=== PATIENT | female | born 1950 | race Caucasian/White ===

== ENCOUNTER 2017-10-31 07:43 | Inpatient (IN) | payer MEDICARE, BC ==
[~2017-10-31] VITALS: Ht 168.9 cm; Wt 96.8 kg
[~2017-10-31 07:43] MED LIST: AMLO5TAB2 PO; BUPIVACAINE/PF 0.5% ONE; BUPR75TA6 PO; CHOL10003 PO; CLON0.5T11 PO; DEXL60CA2 PO; EPINEPHRINE 1 MG/ML, 1ML ONE; GABA300C10 PO; LEVO88TA4 PO; LOSA100T6 PO; ONDA4TAB10 PO; OXYC-302 PO; RANI300T PO; SIMV40TA3 PO; SUCR1TAB PO; TIZA2TAB PO
[2017-10-31] MEDS ORDERED: LACTATED RINGERS 1,000 ML IV SCH (08:35)
[2017-10-31 08:38] VITALS: BP 134/88
[2017-10-31 09:25] LABS: ALANINE AMINOTRANSFERASE 41 U/L (12-78); ALBUMIN 3.8 g/dL (3.4-5.0); ANION GAP 8 mmol/L (5-15); CHLORIDE 105 mmol/L (98-107); CREATININE 1.18 mg/dL (0.55-1.02)
[2017-10-31 09:27] LABS: ALKALINE PHOSPHATASE 79 U/L (45-117); BILIRUBIN,TOTAL 0.8 mg/dL (0.2-1.0); TOTAL PROTEIN 7.9 g/dL (6.4-8.2)
[2017-10-31] MEDS ORDERED: MIDAZOLAM 1 MG/ML, 2ML ONE (09:44)
[2017-10-31] MEDS ORDERED: FENTANYL PF 250 MCG/5ML ONE (09:44)
[2017-10-31] MEDS ORDERED: GABAPENTIN 300 MG CAPSULE PO ONE (10:00)
[2017-10-31] MEDS ORDERED: ACETAMINOPHEN 500 MG TABLET PO ONE (10:00)
[2017-10-31] MEDS ORDERED: DEXMEDETOMIDINE 200 MCG/2 ML ONE (10:06)
[2017-10-31] MEDS ORDERED: SUGAMMADEX 200 MG/2 ML IVPush ONE (10:06)
[2017-10-31] MEDS ORDERED: ROCURONIUM 10 MG/ML,10ML ONE (10:13)
[2017-10-31] MEDS ORDERED: DEXAMETHASONE 4 MG/ML, 1ML ONE (10:13)
[2017-10-31] MEDS ORDERED: CEFAZOLIN 1,000 MG ONE (10:13)
[2017-10-31] MEDS ORDERED: SUCCINYLCHOLINE 20 MG/ML, 10ML ONE (10:13)
[2017-10-31] MEDS ORDERED: PROPOFOL 10 MG/ML, 20ML ONE (10:13)
[2017-10-31] MEDS ORDERED: LORazepam 2 MG/ML, 1ML IVPush PRN (10:30)
[2017-10-31] MEDS ORDERED: OXYcodone 5 MG/5 ML ORAL.SOL UDC PO PRN (10:30)
[2017-10-31] MEDS ORDERED: LABETALOL 5MG/ML, 20ML IV PRN (10:30)
[2017-10-31] MEDS ORDERED: MORPHINE SULFATE 4 MG/ML, 1ML IVPush PRN (10:30)
[2017-10-31] MEDS ORDERED: hydrALAzine 20 MG/ML, 1ML IV PRN ×2 (10:30→12:00)
[2017-10-31] MEDS ORDERED: ALBUTEROL SULFATE 2.5 MG/3 ML NPPB PRN (10:30)
[2017-10-31] MEDS ORDERED: PROMETHAZINE 25 MG/ML, 1ML IV PRN (10:30)
[2017-10-31] MEDS ORDERED: MEPERIDINE/PF 25MG/0.5ML IVPush PRN (10:30)
[2017-10-31] MEDS ORDERED: HYDROmorphone 2 MG/ML, 1ML ONE (11:56)
[2017-10-31] MEDS ORDERED: FENTANYL PF 100 MCG/2ML ONE (11:56)
[2017-10-31] MEDS: HYDROmorphone 1 MG/ML, 1ML IV PRN ×3 (11:59→12:26)
[2017-10-31] MEDS ORDERED: morphine SULFATE 10 MG/ML, 1ML IV PRN (12:00)
[2017-10-31] MEDS ORDERED: DIPHENHYDRAMINE 50 MG/ML, 1ML IV PRN (12:00)
[2017-10-31] MEDS ORDERED: PROMETHAZINE 25 MG/ML, 1ML IM PRN (12:00)
[2017-10-31] MEDS ORDERED: PROMETHAZINE 12.5 MG SUPP PR PRN (12:00)
[2017-10-31] MEDS ORDERED: HYDROcodone/APAP 7.5-325MG/15ML UDC PO PRN (12:00)
[2017-10-31] MEDS ORDERED: ENALAPRILAT 1.25 MG/ML, 2ML IV PRN (12:00)
[2017-10-31] MEDS ORDERED: PHARMACY INSTRUCTION MC PRN (12:00)
[2017-10-31] MEDS ORDERED: ONDANSETRON 2MG/ML, 2ML IVPush PRN (12:00)
[2017-10-31] MEDS: FENTANYL PF 100 MCG/2ML IV PRN ×2 (12:03→12:17)
[2017-10-31] MEDS ORDERED: OXYcodone 5 MG/5 ML ORAL.SOL UDC ONE ×2 (12:04→18:09)
[2017-10-31 13:30] VITALS: BP 102/67
[2017-10-31] MEDS: PANTOPRAZOLE 40 MG IV IVPush SCH (16:29)
[2017-10-31] MEDS: OXYcodone 5 MG/5 ML ORAL.SOL UDC PO PRN ×2 (18:12→22:00)
[2017-10-31] MEDS: LACTATED RINGERS 1,000 ML IV SCH ×2 (18:12→22:51)
[2017-10-31 18:23] VITALS: BP 145/89
[2017-10-31 20:15] VITALS: BP 123/84
[2017-10-31] MEDS: LORazepam 2 MG/ML, 1ML IV PRN (20:58)
[2017-11-01 00:02] VITALS: BP 142/78
[2017-11-01] MEDS: OXYcodone 5 MG/5 ML ORAL.SOL UDC PO PRN ×6 (00:55→21:10)
[2017-11-01 03:00] VITALS: BP 135/78
[2017-11-01] MEDS: LEVOTHYROXINE 88 MCG TABLET PO SCH (05:41)
[2017-11-01] MEDS: LACTATED RINGERS 1,000 ML IV SCH ×3 (05:42→23:00)
[2017-11-01 08:24] VITALS: BP 125/79
[2017-11-01] MEDS: PANTOPRAZOLE 40 MG IV IVPush SCH (09:06)
[2017-11-01] MEDS: KETOROLAC 30 MG/1 ML IVPush SCH ×3 (09:06→21:10)
[2017-11-01] MEDS: AMLODIPINE 2.5 MG TABLET PO SCH (11:46)
[2017-11-01] MEDS: LOSARTAN 50MG TABLET PO SCH (11:46)
[2017-11-01] MEDS: ENOXAPARIN 40 MG/0.4 ML SQ SCH (13:06)
[2017-11-01 13:18] VITALS: BP 160/108
[2017-11-01] MEDS ORDERED: ATEN25TA PO (14:53)
[2017-11-01] MEDS ORDERED: TIZA2TAB PO (14:53)
[2017-11-01] MEDS ORDERED: CLON0.5T11 PO (14:53)
[2017-11-01] MEDS ORDERED: GABA600T2 PO (14:53)
[2017-11-01] MEDS ORDERED: HYDR12.53 PO (14:53)
[2017-11-01 17:02] VITALS: BP 133/84
[2017-11-01 20:00] VITALS: BP 123/70
[2017-11-01] MEDS: LORazepam 2 MG/ML, 1ML IV PRN (22:34)
[2017-11-02] MEDS: KETOROLAC 30 MG/1 ML IVPush SCH ×3 (03:00→15:00)
[2017-11-02 03:15] VITALS: BP 152/84
[2017-11-02] MEDS: OXYcodone 5 MG/5 ML ORAL.SOL UDC PO PRN ×4 (03:56→14:08)
[2017-11-02] MEDS: LEVOTHYROXINE 88 MCG TABLET PO SCH (06:28)
[2017-11-02 07:25] VITALS: BP 132/79
[2017-11-02] MEDS: LACTATED RINGERS 1,000 ML IV SCH ×2 (07:39→15:00)
[2017-11-02] MEDS: AMLODIPINE 2.5 MG TABLET PO SCH (09:00)
[2017-11-02] MEDS: PANTOPRAZOLE 40 MG IV IVPush SCH (09:29)
[2017-11-02] MEDS: ENOXAPARIN 40 MG/0.4 ML SQ SCH (09:29)
[2017-11-02] MEDS: LOSARTAN 50MG TABLET PO SCH (09:29)
[2017-11-02 14:42] VITALS: BP 143/85
[2017-11-02] MEDS: LORazepam 2 MG/ML, 1ML IV PRN (14:52)
[2017-11-02] MEDS ORDERED: OXYC5CAP2 PO (16:06)
== END 2017-11-02 16:15 | disposition home or self-care (01) | DRG 326 ==
LOC: OUT 07:43 → ORIP 11:41 → 4NOR 13:58 → DCLOUNGE 11-02 16:02
PROVIDERS: ADMIT Thoracic Surgery (Cardiothoracic Vascular Surgery); ATTEND Thoracic Surgery (Cardiothoracic Vascular Surgery)
PROC: 0BUT4JZ Supplement Diaphragm with Synthetic Substitute, Percutaneous Endoscopic Approach (ICD-10-PCS; 2017-10-31)
PROC: 8E0W4CZ Robotic Assisted Procedure of Trunk Region, Percutaneous Endoscopic Approach (ICD-10-PCS; 2017-10-31)
PROC: 0DV44ZZ Restriction of Esophagogastric Junction, Percutaneous Endoscopic Approach (ICD-10-PCS; principal; 2017-10-31 10:30)
DX: K44.9 Diaphragmatic hernia without obstruction or gangrene (principal); J96.01 Acute respiratory failure with hypoxia; K21.9 Gastro-esophageal reflux disease without esophagitis; I10 Essential (primary) hypertension; F41.9 Anxiety disorder, unspecified; F32.9 Major depressive disorder, single episode, unspecified; E03.9 Hypothyroidism, unspecified; Z88.6 Allergy status to analgesic agent; Z88.2 Allergy status to sulfonamides; Z88.8 Allergy status to other drugs, medicaments and biological substances
CPT/HCPCS: 36415; 74241; 80053; 93005; J0171; J0690; J1100; J1170; J1650; J1885; J2250; J2405; J2704; J3010; J3490; C1781; C9113; J0330; J0360; J2060; J2270; J7120

== ENCOUNTER 2017-11-25 11:17 | Inpatient (IN) | payer MEDICARE, BC ==
[~2017-11-25] VITALS: Ht 167.6 cm; Wt 104.1 kg
[~2017-11-25 11:17] MED LIST changes: -AMLO5TAB2 PO; +AMLO5TAB7 PO; +ATEN25TA PO; -BUPIVACAINE/PF 0.5% ONE; -EPINEPHRINE 1 MG/ML, 1ML ONE; +GABA600T2 PO; +HYDR12.53 PO; -LOSA100T6 PO; +LOSA100T7 PO; +OXYC5CAP2 PO
[2017-11-25 13:03] VITALS: BP 163/87
[2017-11-25] MEDS ORDERED: ONDANSETRON 2MG/ML, 2ML IVPush PRN ×2 (13:30→19:30)
[2017-11-25] MEDS ORDERED: PROMETHAZINE 25 MG/ML, 1ML IM PRN (13:30)
[2017-11-25] MEDS ORDERED: ONDANSETRON ODT 4 MG PO PRN (13:30)
[2017-11-25] MEDS: SODIUM CHLORIDE 0.9% IV SCH ×2 (14:30→22:30)
[2017-11-25] MEDS: CEFAZOLIN IV SCH ×2 (14:30→22:30)
[2017-11-25] MEDS: ENOXAPARIN 40 MG/0.4 ML SQ SCH (14:46)
[2017-11-25] MEDS: SODIUM CHLORIDE 0.9% 1,000 ML IV SCH (14:47)
[2017-11-25 14:57] LABS: BASOPHILS # (AUTO) 0.04 x10^3/uL (0-0.1); BASOPHILS % (AUTO) 1 % (0-1); EOSINOPHILS # (AUTO) 0.09 x10^3/uL (0-0.4); EOSINOPHILS % (AUTO) 1 % (1-7); LYMPHOCYTES # (AUTO) 1.51 x10^3/uL (1-3.4); LYMPHOCYTES % (AUTO) 21 % (22-44); MD NO; MEAN CORPUSCULAR HEMOGLOBIN 32.3 pg (27.0-34.8); MEAN CORPUSCULAR HGB CONC 33.7 g/dL (32.4-35.8); MEAN CORPUSCULAR VOLUME 95.8 fL (80-100); MEAN PLATELET VOLUME 7.4 fL (7.4-10.4); MONOCYTES # (AUTO) 0.29 x10^3/uL (0.2-0.8); MONOCYTES % (AUTO) 4 % (2-9); NEUTROPHILS % (AUTO) 74 % (42-75); PLATELET COUNT 256 x10^3/uL (130-400); RED BLOOD COUNT 4.08 x10^6/uL (3.82-5.3); RED CELL DISTRIBUTION WIDTH 14.3 % (9.6-15.2)
[2017-11-25 15:33] LABS: MICROSCOPIC NOT IND
[2017-11-25] MEDS: LORazepam 2 MG/ML, 1ML IVPush PRN ×2 (15:51→20:45)
[2017-11-25] MEDS: morphine SULFATE 10 MG/ML, 1ML IVPush PRN ×2 (18:16→21:27)
[2017-11-25 20:00] VITALS: BP 182/108
[2017-11-25] MEDS: ENALAPRILAT 1.25 MG/ML, 2ML IVPush PRN (20:45)
[2017-11-25 21:30] VITALS: BP 161/93
[2017-11-26] MEDS: SODIUM CHLORIDE 0.9% 1,000 ML IV SCH (00:22)
[2017-11-26 02:00] VITALS: BP 181/97
[2017-11-26] MEDS: morphine SULFATE 10 MG/ML, 1ML IVPush PRN ×5 (02:30→21:13)
[2017-11-26] MEDS: LORazepam 2 MG/ML, 1ML IVPush PRN ×4 (02:30→21:13)
[2017-11-26] MEDS: ENALAPRILAT 1.25 MG/ML, 2ML IVPush PRN ×2 (02:45→21:43)
[2017-11-26 05:32] LABS: CALCIUM 6.7 mg/dL (8.5-10.1); CHLORIDE 111 mmol/L (98-107)
[2017-11-26 05:39] LABS: ALANINE AMINOTRANSFERASE 19 U/L (12-78); ALBUMIN 2.4 g/dL (3.4-5.0); ALKALINE PHOSPHATASE 82 U/L (45-117); ANION GAP 9 mmol/L (5-15); BILIRUBIN,TOTAL 0.7 mg/dL (0.2-1.0); CREATININE 0.51 mg/dL (0.55-1.02); TOTAL PROTEIN 5.6 g/dL (6.4-8.2)
[2017-11-26] MEDS: CEFAZOLIN IV SCH ×2 (06:30→14:30)
[2017-11-26] MEDS ORDERED: POTASSIUM CHLORIDE 60 MEQ in SODIUM CHLORIDE 0.9% 500 ML IV ONE (06:30)
[2017-11-26] MEDS: SODIUM CHLORIDE 0.9% IV SCH ×2 (06:30→14:30)
[2017-11-26] MEDS ORDERED: SODIUM PHOSPHATE 30 MMOL in SODIUM CHLORIDE 0.9% 500 ML IV ONE ×2 (06:30→16:00)
[2017-11-26] MEDS ORDERED: MAGNESIUM SULFATE PMX 4GM/100M 100 ML IVPB ONE (07:00)
[2017-11-26] MEDS ORDERED: hydrALAzine 20 MG/ML, 1ML IV PRN ×3 (07:00→13:00)
[2017-11-26 07:24] VITALS: BP 174/95
[2017-11-26] MEDS: ONDANSETRON ODT 4 MG PO PRN ×3 (09:42→21:42)
[2017-11-26] MEDS: ENOXAPARIN 40 MG/0.4 ML SQ SCH (11:55)
[2017-11-26 12:02] VITALS: BP 161/84
[2017-11-26 15:36] LABS: ALBUMIN 2.7 g/dL (3.4-5.0); ANION GAP 11 mmol/L (5-15); CALCIUM 7.3 mg/dL (8.5-10.1); CHLORIDE 107 mmol/L (98-107); CREATININE 0.54 mg/dL (0.55-1.02)
[2017-11-26] MEDS ORDERED: POTASSIUM CHLORIDE 40 MEQ in SODIUM CHLORIDE 0.9% 500 ML IV ONE (16:00)
[2017-11-26 16:16] LABS: INTERNATIONAL NORMALIZED RATIO 1.04 (0.93-1.1); PROTHROMBIN TIME 10.7 Seconds (9.6-11.5)
[2017-11-26] MEDS: METRONIDAZOLE PMX 500MG/100ML 100 ML IV SCH ×2 (17:14→23:45)
[2017-11-26] MEDS: CEFTRIAXONE 1,000 MG in SODIUM CHLORIDE 0.9% 50 ML IV SCH (19:30)
[2017-11-26] MEDS: NS + 20MEQ KCL 1,000 ML IV SCH (20:42)
[2017-11-26] MEDS: PANTOPRAZOLE 40 MG IV IVPush SCH (20:45)
[2017-11-26 21:20] VITALS: BP 176/102
[2017-11-26 22:41] VITALS: BP 162/91
[2017-11-26] MEDS: METOCLOPRAMIDE 5 MG/ML, 2ML IVPush PRN (23:52)
[2017-11-27] VITALS (8 sets, daily range): BP systolic 157–204; BP diastolic 81–130
[2017-11-27] MEDS: morphine SULFATE 10 MG/ML, 1ML IVPush PRN ×4 (01:56→21:13)
[2017-11-27] MEDS: LORazepam 2 MG/ML, 1ML IVPush PRN ×4 (01:56→20:48)
[2017-11-27] MEDS: METRONIDAZOLE PMX 500MG/100ML 100 ML IV SCH ×3 (05:15→20:48)
[2017-11-27] MEDS: ONDANSETRON ODT 4 MG PO PRN ×3 (05:17→22:20)
[2017-11-27 06:29] LABS: BASOPHILS # (AUTO) 0.01 x10^3/uL (0-0.1); BASOPHILS % (AUTO) 0 % (0-1); EOSINOPHILS # (AUTO) 0.26 x10^3/uL (0-0.4); EOSINOPHILS % (AUTO) 4 % (1-7); LYMPHOCYTES # (AUTO) 1.19 x10^3/uL (1-3.4); LYMPHOCYTES % (AUTO) 18 % (22-44); MD NO; MEAN CORPUSCULAR HGB CONC 34.4 g/dL (32.4-35.8); MEAN PLATELET VOLUME 7.3 fL (7.4-10.4); MONOCYTES # (AUTO) 0.35 x10^3/uL (0.2-0.8); MONOCYTES % (AUTO) 5 % (2-9); NEUTROPHILS # (AUTO) 4.76 x10^3/uL (1.8-6.8); NEUTROPHILS % (AUTO) 72 % (42-75); PLATELET COUNT 239 x10^3/uL (130-400); RED CELL DISTRIBUTION WIDTH 14.1 % (9.6-15.2)
[2017-11-27 06:41] LABS: ALANINE AMINOTRANSFERASE 16 U/L (12-78); ALBUMIN 2.4 g/dL (3.4-5.0); ANION GAP 14 mmol/L (5-15); CALCIUM 6.7 mg/dL (8.5-10.1); CHLORIDE 109 mmol/L (98-107); CREATININE 0.46 mg/dL (0.55-1.02)
[2017-11-27 06:43] LABS: ALKALINE PHOSPHATASE 80 U/L (45-117); BILIRUBIN,TOTAL 0.3 mg/dL (0.2-1.0); TOTAL PROTEIN 5.5 g/dL (6.4-8.2)
[2017-11-27] MEDS ORDERED: MAGNESIUM SULFATE 3 GM in SODIUM CHLORIDE 0.9% 100 ML IV ONE (07:00)
[2017-11-27] MEDS ORDERED: POTASSIUM CHLORIDE 40 MEQ in SODIUM CHLORIDE 0.9% 500 ML IV ONE (07:00)
[2017-11-27] MEDS: PANTOPRAZOLE 40 MG IV IVPush SCH ×2 (09:18→20:48)
[2017-11-27] MEDS ORDERED: MIDAZOLAM 1 MG/ML, 2ML ONE (11:00)
[2017-11-27] MEDS ORDERED: FENTANYL PF 100 MCG/2ML ONE ×2 (11:00→12:02)
[2017-11-27] MEDS ORDERED: PROPOFOL 10 MG/ML, 20ML ONE (11:15)
[2017-11-27] MEDS ORDERED: ALBUTEROL SULFATE 2.5 MG/3 ML ONE (11:52)
[2017-11-27] MEDS ORDERED: ALBUTEROL SULFATE 2.5 MG/3 ML NPPB PRN (12:00)
[2017-11-27] MEDS ORDERED: LABETALOL 5MG/ML, 20ML IV PRN (12:00)
[2017-11-27] MEDS ORDERED: FENTANYL PF 100 MCG/2ML IV PRN (12:00)
[2017-11-27] MEDS ORDERED: HALOPERIDOL 5 MG/ML IV PRN (12:00)
[2017-11-27] MEDS ORDERED: PROMETHAZINE 25 MG/ML, 1ML IV PRN (12:00)
[2017-11-27] MEDS ORDERED: MEPERIDINE/PF 25MG/0.5ML IVPush PRN (12:00)
[2017-11-27] MEDS ORDERED: HYDROmorphone 1 MG/ML, 1ML IV PRN (12:00)
[2017-11-27] MEDS ORDERED: hydrALAzine 20 MG/ML, 1ML IV PRN (12:00)
[2017-11-27] MEDS ORDERED: OXYcodone 5 MG/5 ML ORAL.SOL UDC PO PRN (12:00)
[2017-11-27] MEDS ORDERED: LABETALOL 5MG/ML, 20ML ONE (12:05)
[2017-11-27] MEDS: KETOROLAC 30 MG/1 ML IVPush PRN ×2 (14:39→23:05)
[2017-11-27] MEDS: ENOXAPARIN 40 MG/0.4 ML SQ SCH (14:39)
[2017-11-27] MEDS: NS + 20MEQ KCL 1,000 ML IV SCH (16:42)
[2017-11-27] MEDS: CEFTRIAXONE 1,000 MG in SODIUM CHLORIDE 0.9% 50 ML IV SCH (19:15)
[2017-11-28] VITALS (12 sets, daily range): BP systolic 163–182; BP diastolic 86–116
[2017-11-28] MEDS: morphine SULFATE 10 MG/ML, 1ML IVPush PRN ×4 (01:21→16:23)
[2017-11-28] MEDS: METRONIDAZOLE PMX 500MG/100ML 100 ML IV SCH ×4 (01:30→20:17)
[2017-11-28] MEDS: NS + 20MEQ KCL 1,000 ML IV SCH ×2 (02:21→11:58)
[2017-11-28] MEDS: ONDANSETRON ODT 4 MG PO PRN ×3 (03:58→23:34)
[2017-11-28] MEDS: LORazepam 2 MG/ML, 1ML IVPush PRN ×4 (03:58→22:09)
[2017-11-28 06:23] LABS: ALBUMIN 2.4 g/dL (3.4-5.0); ANION GAP 11 mmol/L (5-15); CALCIUM 7.2 mg/dL (8.5-10.1); CHLORIDE 108 mmol/L (98-107); CREATININE 0.49 mg/dL (0.55-1.02)
[2017-11-28] MEDS ORDERED: MAGNESIUM SULFATE 1 GM in SODIUM CHLORIDE 0.9% 50 ML IV ONE (07:00)
[2017-11-28] MEDS ORDERED: POTASSIUM CHLORIDE 20 MEQ in SODIUM CHLORIDE 0.9% 250 ML IV ONE (07:00)
[2017-11-28] MEDS: KETOROLAC 30 MG/1 ML IVPush PRN (07:35)
[2017-11-28] MEDS: PANTOPRAZOLE 40 MG IV IVPush SCH ×2 (07:53→20:18)
[2017-11-28] MEDS: METOCLOPRAMIDE 5 MG/ML, 2ML IVPush PRN (07:53)
[2017-11-28] MEDS: LABETALOL 5MG/ML, 20ML IVPush PRN ×3 (10:55→17:50)
[2017-11-28] MEDS: AMLODIPINE 2.5 MG TABLET PO SCH (11:57)
[2017-11-28] MEDS: ATENOLOL 25 MG TABLET PO SCH (11:57)
[2017-11-28] MEDS ORDERED: MORPHINE SULFATE 4 MG/ML, 1ML ONE ×2 (12:08→16:20)
[2017-11-28] MEDS: ENOXAPARIN 40 MG/0.4 ML SQ SCH (14:47)
[2017-11-28] MEDS: GABAPENTIN 300 MG CAPSULE PO SCH ×3 (15:53→21:00)
[2017-11-28] MEDS ORDERED: SCOPOLAMINE PATCH, 1.5MG PATCH.TD72 TD ONE (17:30)
[2017-11-28] MEDS: HYDROmorphone 2MG TABLET PO PRN ×2 (17:50→22:08)
[2017-11-28] MEDS: CEFTRIAXONE 1,000 MG in SODIUM CHLORIDE 0.9% 50 ML IV SCH (19:15)
[2017-11-28] MEDS: SIMVASTATIN 40 MG TABLET PO SCH (20:19)
[2017-11-29] MEDS: NS + 20MEQ KCL 1,000 ML IV SCH ×2 (00:29→21:38)
[2017-11-29 01:54] VITALS: BP 156/75
[2017-11-29] MEDS: METRONIDAZOLE PMX 500MG/100ML 100 ML IV SCH ×4 (02:30→20:09)
[2017-11-29 06:18] LABS: BASOPHILS # (AUTO) 0.01 x10^3/uL (0-0.1); BASOPHILS % (AUTO) 0 % (0-1); EOSINOPHILS % (AUTO) 5 % (1-7); LYMPHOCYTES # (AUTO) 1.31 x10^3/uL (1-3.4); LYMPHOCYTES % (AUTO) 18 % (22-44); MD NO; MEAN CORPUSCULAR HEMOGLOBIN 32.8 pg (27.0-34.8); MEAN CORPUSCULAR VOLUME 96.6 fL (80-100); MEAN PLATELET VOLUME 7.5 fL (7.4-10.4); MONOCYTES # (AUTO) 0.49 x10^3/uL (0.2-0.8); MONOCYTES % (AUTO) 7 % (2-9); NEUTROPHILS % (AUTO) 71 % (42-75); PLATELET COUNT 276 x10^3/uL (130-400); RED BLOOD COUNT 4.57 x10^6/uL (3.82-5.3); RED CELL DISTRIBUTION WIDTH 14.4 % (9.6-15.2)
[2017-11-29 06:24] LABS: ALANINE AMINOTRANSFERASE 13 U/L (12-78); ALBUMIN 2.7 g/dL (3.4-5.0); ANION GAP 8 mmol/L (5-15); CALCIUM 7.8 mg/dL (8.5-10.1); CHLORIDE 108 mmol/L (98-107); CREATININE 0.49 mg/dL (0.55-1.02)
[2017-11-29 06:26] LABS: ALKALINE PHOSPHATASE 78 U/L (45-117); BILIRUBIN,TOTAL 0.8 mg/dL (0.2-1.0); TOTAL PROTEIN 6.3 g/dL (6.4-8.2)
[2017-11-29] MEDS: ONDANSETRON ODT 4 MG PO PRN ×3 (07:39→20:13)
[2017-11-29 07:45] VITALS: BP 174/103
[2017-11-29] MEDS: morphine SULFATE 10 MG/ML, 1ML IVPush PRN ×2 (07:50→20:11)
[2017-11-29] MEDS ORDERED: MAGNESIUM SULFATE PMX 2GM/50ML 50 ML IV ONE (08:00)
[2017-11-29] MEDS ORDERED: POTASSIUM PHOSPHATE 44 MEQ in SODIUM CHLORIDE 0.9% 500 ML IV ONE (08:00)
[2017-11-29] MEDS: BUPROPION 75 MG TABLET PO PRN (08:04)
[2017-11-29] MEDS: AMLODIPINE 2.5 MG TABLET PO SCH (08:04)
[2017-11-29] MEDS: LOSARTAN 50MG TABLET PO SCH (08:04)
[2017-11-29] MEDS: GABAPENTIN 300 MG CAPSULE PO SCH ×3 (08:04→20:19)
[2017-11-29] MEDS: ATENOLOL 25 MG TABLET PO SCH (08:05)
[2017-11-29] MEDS: LORazepam 2 MG/ML, 1ML IVPush PRN ×2 (08:39→20:11)
[2017-11-29] MEDS: PANTOPRAZOLE 40 MG IV IVPush SCH ×2 (10:29→21:37)
[2017-11-29] MEDS: ENOXAPARIN 40 MG/0.4 ML SQ SCH (10:29)
[2017-11-29] MEDS: LEVOTHYROXINE 88 MCG TABLET PO SCH (10:29)
[2017-11-29 10:40] VITALS: BP 168/102
[2017-11-29] MEDS: ENALAPRILAT 1.25 MG/ML, 2ML IVPush PRN (10:56)
[2017-11-29 12:31] VITALS: BP 153/88
[2017-11-29] MEDS: HYDROmorphone 2MG TABLET PO PRN (13:41)
[2017-11-29] MEDS: CEFTRIAXONE 1,000 MG in SODIUM CHLORIDE 0.9% 50 ML IV SCH (19:15)
[2017-11-29 19:52] VITALS: BP 153/90
[2017-11-29] MEDS ORDERED: SIMETHICONE 80 MG CHEW TAB PO SCH (21:00)
[2017-11-30] MEDS: GABAPENTIN 300 MG CAPSULE PO SCH ×3 (00:07→16:15)
[2017-11-30] MEDS: SIMVASTATIN 40 MG TABLET PO SCH (00:07)
[2017-11-30] MEDS: TIZANIDINE 2MG TABLET PO SCH ×2 (00:07→09:33)
[2017-11-30 00:42] VITALS: BP 134/77
[2017-11-30] MEDS: METRONIDAZOLE PMX 500MG/100ML 100 ML IV SCH ×2 (02:30→08:30)
[2017-11-30] MEDS: ONDANSETRON ODT 4 MG PO PRN ×2 (05:07→10:34)
[2017-11-30] MEDS: morphine SULFATE 10 MG/ML, 1ML IVPush PRN (05:08)
[2017-11-30] MEDS: LORazepam 2 MG/ML, 1ML IVPush PRN ×2 (05:08→12:41)
[2017-11-30 05:26] LABS: BASOPHILS # (AUTO) 0.03 x10^3/uL (0-0.1); BASOPHILS % (AUTO) 0 % (0-1); EOSINOPHILS % (AUTO) 4 % (1-7); LYMPHOCYTES # (AUTO) 1.48 x10^3/uL (1-3.4); LYMPHOCYTES % (AUTO) 20 % (22-44); MD NO; MEAN CORPUSCULAR HEMOGLOBIN 32.9 pg (27.0-34.8); MEAN CORPUSCULAR HGB CONC 34.2 g/dL (32.4-35.8); MEAN CORPUSCULAR VOLUME 96.3 fL (80-100); MEAN PLATELET VOLUME 8.6 fL (7.4-10.4); MONOCYTES # (AUTO) 0.57 x10^3/uL (0.2-0.8); MONOCYTES % (AUTO) 8 % (2-9); NEUTROPHILS # (AUTO) 5.15 x10^3/uL (1.8-6.8); NEUTROPHILS % (AUTO) 68 % (42-75); PLATELET COUNT 307 x10^3/uL (130-400); RED BLOOD COUNT 4.38 x10^6/uL (3.82-5.3); RED CELL DISTRIBUTION WIDTH 14.4 % (9.6-15.2)
[2017-11-30 06:55] VITALS: BP 111/65
[2017-11-30 07:02] LABS: ANION GAP 12 mmol/L (5-15); CALCIUM 7.9 mg/dL (8.5-10.1); CHLORIDE 107 mmol/L (98-107)
[2017-11-30 07:04] LABS: CREATININE 0.57 mg/dL (0.55-1.02)
[2017-11-30] MEDS: NS + 20MEQ KCL 1,000 ML IV SCH (09:31)
[2017-11-30] MEDS: PANTOPRAZOLE 40 MG IV IVPush SCH (09:31)
[2017-11-30] MEDS: LOSARTAN 50MG TABLET PO SCH (09:32)
[2017-11-30] MEDS: HYDROmorphone 2MG TABLET PO PRN (09:32)
[2017-11-30] MEDS: AMLODIPINE 2.5 MG TABLET PO SCH (09:32)
[2017-11-30] MEDS: LEVOTHYROXINE 88 MCG TABLET PO SCH (09:33)
[2017-11-30] MEDS: ATENOLOL 25 MG TABLET PO SCH (09:34)
[2017-11-30] MEDS: BUPROPION 75 MG TABLET PO PRN (10:34)
[2017-11-30 12:56] VITALS: BP 129/81
[2017-11-30] MEDS: ENOXAPARIN 40 MG/0.4 ML SQ SCH (14:16)
[2017-11-30] MEDS ORDERED: PANT40TA3 PO (14:32)
== END 2017-11-30 17:01 | disposition home health service (06) | DRG 919 ==
LOC: 4WST 12:59
PROVIDERS: ADMIT Hospitalist; ATTEND Hospitalist
PROC: 05JYXZZ Inspection of Upper Vein, External Approach (ICD-10-PCS; 2017-11-26)
PROC: 0D748ZZ Dilation of Esophagogastric Junction, Via Natural or Artificial Opening Endoscopic (ICD-10-PCS; principal; 2017-11-27 11:30)
DX: T85.79XA Infection and inflammatory reaction due to other internal prosthetic devices, implants and grafts, initial encounter (principal); E43 Unspecified severe protein-calorie malnutrition; N39.0 Urinary tract infection, site not specified; N17.9 Acute kidney failure, unspecified; I82.612 Acute embolism and thrombosis of superficial veins of left upper extremity; K52.9 Noninfective gastroenteritis and colitis, unspecified; B96.20 Unspecified Escherichia coli [E. coli] as the cause of diseases classified elsewhere; E03.9 Hypothyroidism, unspecified; E78.00 Pure hypercholesterolemia, unspecified; E83.39 Other disorders of phosphorus metabolism; E66.9 Obesity, unspecified; M54.9 Dorsalgia, unspecified; E83.42 Hypomagnesemia; E87.6 Hypokalemia; E86.0 Dehydration; F32.9 Major depressive disorder, single episode, unspecified; F41.9 Anxiety disorder, unspecified; Y83.8 Other surgical procedures as the cause of abnormal reaction of the patient, or of later complication, without mention of misadventure at the time of the procedure; G89.29 Other chronic pain; I10 Essential (primary) hypertension; K21.9 Gastro-esophageal reflux disease without esophagitis; Z81.8 Family history of other mental and behavioral disorders; Z82.3 Family history of stroke; Z82.49 Family history of ischemic heart disease and other diseases of the circulatory system; Z82.62 Family history of osteoporosis; Z85.3 Personal history of malignant neoplasm of breast; Z87.19 Personal history of other diseases of the digestive system; Z87.442 Personal history of urinary calculi; Z90.49 Acquired absence of other specified parts of digestive tract; Z90.710 Acquired absence of both cervix and uterus; Z68.37 Body mass index [BMI] 37.0-37.9, adult; Z88.2 Allergy status to sulfonamides; Z88.5 Allergy status to narcotic agent; Z88.8 Allergy status to other drugs, medicaments and biological substances; Z79.899 Other long term (current) drug therapy
CPT/HCPCS: 36415; 36569; 71045; 74018; 76937; 77001; 80048; 80053; 81003; 82040; 83605; 83735; 84100; 85025; 85610; 87040; 94640; G0378; J0696; J1650; J1885; J2250; J2704; J3010; J3475; J3480; J7613; Q0162; C1725; C9113; J0360; J2060; J2270; J2765; J7030; J7040; J7050